=== PATIENT | female | born 1980 ===

== ENCOUNTER 2023-05-01 11:15 | Outpatient (CLI) | payer OTHER | END 2023-05-01 11:23 | disposition home or self-care (01) | LOC: RAD 11:15 | PROVIDERS: ATTEND Orthopaedic Surgery | DX: M79.671 Pain in right foot (principal) ==

== ENCOUNTER 2023-05-29 09:40 | Outpatient (CLI) | payer OTHER | END 2023-05-29 09:45 | disposition home or self-care (01) | LOC: RAD 09:40 | PROVIDERS: ATTEND Orthopaedic Surgery | DX: S92.354A Nondisplaced fracture of fifth metatarsal bone, right foot, initial encounter for closed fracture (principal) ==

== ENCOUNTER 2023-06-26 10:07 | Outpatient (CLI) | payer OTHER | END 2023-06-26 10:15 | disposition home or self-care (01) | LOC: RAD 10:07 | PROVIDERS: ATTEND Orthopaedic Surgery | DX: S92.354A Nondisplaced fracture of fifth metatarsal bone, right foot, initial encounter for closed fracture (principal) ==

== ENCOUNTER 2023-10-24 10:56 | Outpatient (CLI) | payer OTHER | END 2023-10-24 10:59 | disposition home or self-care (01) | LOC: RAD 10:56 | PROVIDERS: ATTEND Orthopaedic Surgery | DX: S92.354A Nondisplaced fracture of fifth metatarsal bone, right foot, initial encounter for closed fracture (principal) ==

== ENCOUNTER 2024-04-22 07:48 | Outpatient (CLI) | payer OTHER | END 2024-04-22 07:51 | disposition home or self-care (01) | LOC: RAD 07:48 | DX: M79.673 Pain in unspecified foot (principal) ==